=== PATIENT | female | born 1975 | race Caucasian/White ===

== ENCOUNTER 2017-07-25 07:46 | Day surgery (SDC) | payer OTHER ==
[2017-07-24 09:10] VITALS: BMI 46.7
[2017-07-25] MEDS ORDERED: ONDANSETRON 4 MG/2 ML VIAL IVPUSH PRN (10:29)
[2017-07-25] MEDS ORDERED: IBUPROFEN 600 MG TABLET (FP) PO PRN (10:29)
[2017-07-25] MEDS ORDERED: IBUPROFEN 800 MG/8 ML IJ IVPB PRN (10:29)
[2017-07-25] MEDS ORDERED: oxyCODONE HCL 5 MG TABLET PO PRN (10:29)
--- NOTE | 2017-07-25 10:29 | OP ---
Operative Note - Note: Operative Date: 07/25/17 Pre-Operative Diagnosis: 42yo with abnormal, heavy menses, anemia Operation: Hysteroscopy, polypectomy, dialation, curettage, Endometrial ablation Findings: 1. 12 week fibroid uterus with anterior superior obliterated cervix 2. Bilateral ostia visualized Post-Operative Diagnosis: Same as Pre-op (and very overgrown endometrium) Surgeon: Rubina Sosa Anesthesiologist/HRBP: Kathy Grullon MD Anesthesia: MAC Estimated Blood Loss (mls): 0 Drains, Volume Out (mls): 100 Fluid Volume Replaced (mls): 500 Operative Report Dictated: Yes
[2017-07-25] MEDS ORDERED: ELECTROLYTE-148 SOLN 1,000 ML IV SCH (10:30)
--- NOTE | 2017-07-25 10:34 | HP ---
History & Physical Update - History History: No Change - Physical Physical: No Change - Assessment Assessment: No Change - Plan Plan: No Change (History and Physical reviewed and unchanged from the H&P in the patient chart. Consent signed, dated and witnessed)
[2017-07-25] MEDS ORDERED: MIDAZOLAM HCL 2 MG/2 ML SINGLE DOSE VIAL ONE ×2 (10:44)
[2017-07-25] MEDS ORDERED: PROPOFOL 20 ML ONE ×2 (10:48→11:31)
[2017-07-25] MEDS ORDERED: ROCURONIUM BROMIDE 50 MG/5 ML VIAL ONE (10:49)
[2017-07-25] MEDS ORDERED: KETOROLAC TROMETHAMINE 30 MG/1 ML VIAL ONE (12:01)
[2017-07-25] MEDS ORDERED: LIDOCAINE HCL/PF 2% SDV 5ML VIAL ONE (12:01)
[2017-07-25] MEDS ORDERED: DEXAMETHASONE SOD PHOSPHATE 4 MG/1 ML VIAL ONE (12:01)
[2017-07-25 14:04] VITALS: TEMP 98.3
[2017-07-25] MEDS ORDERED: ONDANSETRON 4 MG/2 ML VIAL ONE (14:14)
[2017-07-25] MEDS ORDERED: oxyCODONE HCL 5 MG TABLET ONE (14:33)
[2017-07-25 15:59] VITALS: BP 105/57; PULSE 63
--- NOTE | 2017-07-26 08:48 | OP ---
DATE OF OPERATION: 07/25/2017 PREOPERATIVE DIAGNOSIS: A 42-year-old with abnormal heavy menses, menorrhagia, anemia, morbid obesity, and thick endometrium. POSTOPERATIVE DIAGNOSIS: A 42-year-old with abnormal heavy menses, menorrhagia, anemia, morbid obesity, and thick endometrium; very overgrown endometrium. PROCEDURE PERFORMED: Hysteroscopy, polypectomy, dilatation and curettage, endometrial ablation. SURGEON: Rubina Sosa MD ANESTHESIOLOGIST: Kathy Grullon M.D. ANESTHESIA: MAC. FINDINGS: A 12-week fibroid uterus with anterior-superior obliterated cervix, difficult to locate in the vagina. Two bilateral ostia visualized. DESCRIPTION OF PROCEDURE: After ensuring informed consent, the patient was brought to the operating room, where she was placed in the dorsal lithotomy position. After ensuring an appropriate level of anesthesia, vagina and perineum were prepped and draped in sterile fashion. Retractor was used to visualize the cervix and grasp the anterior lip of the cervix. The cervix was found to be dilated, since the patient used Cytotec preoperatively as directed. The cervix easily accommodated a 19-gauge DeLee dilator. The 5-mm hysteroscope was introduced and uterine contents were visualized. Bilateral ostia were visualized, and it was found that the uterus had a significantly overgrown endometrial lining. Also, due to the fact that the cervix was dilated, there was difficulty encountered maintaining uterine dilation, and a significant amount of fluid was escaping onto the floor, so it was impossible to monitor the fluid deficit. The incisor Truclear was used to remove some of the endometrium, and subsequently the size 3 curette was used as well to remove some of the overgrown endometrium and polyps. Subsequently, the 7-mm [employer] hysteroscope was introduced into the uterus without need to dilate and without any fluid escaping onto the drapes anymore. The hysteroscope was found to be snug with the cervix and full hydrothermal ablation cycle was performed without any difficulty, as well as the cooling cycle, without any loss of fluid. It was also noted that the uterine contents were appropriately changed in color due to the appropriate ablation. Subsequently, all instruments were removed from the uterus and the vagina, as well as sponges. Estimated blood loss was 0 mL. The patient was drained of 100 mL of urine at the beginning of the procedure and received 500 mL of IV fluids. All instruments and sponges were counted, and counts were correct x2. The patient tolerated the procedure well and was brought into the recovery room in stable condition. Teresa [id number]
--- NOTE | 2017-07-27 09:58 | PATH ---
Surgical Pathology Report Patient Name: EVELIO RYAN [facility]. Rec. #: [id number] /Age/Gender: 1975 (Age: 42) / F Account: [id number] Location: [facility] SURGICAL Taken: 07/25/2017 Received: 07/25/2017 Reported: 07/27/2017 Physicians: Rubina Sosa M.D. Specimen(s) Received A: ENDOMETRIAL CURETTINGS B: ENDOMETRIUM POLYPS Clinical History Menorrhagia, anemia Final Diagnosis A. ENDOMETRIAL CURETTINGS, DILATION AND CURETTAGE: FRAGMENTS OF MIXED ENDOMETRIAL AND ENDOCERVICAL POLYP, SCANT SUPERFICIAL MYOMETRIUM, BENIGN CERVICAL TISSUE ADMIXED WITH BLOOD. B. ENDOMETRIAL POLYPS, DILATION AND CURETTAGE: FRAGMENTS OF ENDOMETRIAL POLYP. Electronically Signed Lelia Maravilla M.D. Gross Description A. Received in formalin labeled "endometrial curettings," is a 5.3 x 4.0 x 0.4 cm aggregate of krause-brown soft tissue fragments admixed with blood clot. The specimen is entirely submitted in 4 cassettes. B. Received in formalin labeled "endometrial polyps," is a 1.8 x 1.8 x 0.2 cm aggregate of krause soft tissue fragments. The formalin is filtered and the specimen is entirely submitted in one cassette. /07/25/201707/25/2017
== END 2017-07-25 15:15 | disposition home or self-care (01) ==
LOC: JASU-SURG 07:46
PROVIDERS: ATTEND Obstetrics & Gynecology
PROC: 0UDB7ZX Extraction of Endometrium, Via Natural or Artificial Opening, Diagnostic (ICD-10-PCS; 2017-07-25)
PROC: 0U5B8ZZ Destruction of Endometrium, Via Natural or Artificial Opening Endoscopic (ICD-10-PCS; principal; 2017-07-25 09:30)
PROC: 0UDB7ZX Extraction of Endometrium, Via Natural or Artificial Opening, Diagnostic (ICD-10-PCS; 2017-07-25 09:30)
PROC: 0UB97ZX Excision of Uterus, Via Natural or Artificial Opening, Diagnostic (ICD-10-PCS; 2017-07-25 09:30)
DX: N93.8 Other specified abnormal uterine and vaginal bleeding (principal); N92.0 Excessive and frequent menstruation with regular cycle; D64.9 Anemia, unspecified; E66.01 Morbid (severe) obesity due to excess calories; N84.0 Polyp of corpus uteri
CPT/HCPCS: 71046-TC-FY; 84703; 88305-TC